=== PATIENT | female | born 1930 | race Caucasian/White ===

== ENCOUNTER 2018-03-09 17:23 | Emergency (ER) | payer MEDICARE ==
[2018-03-09] MEDS ORDERED: 0.9 % SODIUM CHLORIDE 1,000 ML BAG IV ONE (18:10)
[2018-03-09] MEDS ORDERED: ONDANSETRON HCL IV 4 MG/2 ML VIAL IV ONE (18:10)
--- NOTE | 2018-03-09 18:24 | Emergency Department Record ---
History of Present Illness - General Chief complaint: Rectal bleeding Stated complaint: RECTAL BLEEDING Time Seen by Provider: 03/09/18 17:25 Source: Patient Mode of Arrival: Ambulatory Limitations: No limitations - History of Present Illness Initial comments: The patient is here due to rectal bleeding with clots for the last 12 hours. She is having some cramping AP prior to the BM's. The patient does states she had some dry heaves at the onset of the bleeding. She has no hx of similar issues and is only on a baby ASA daily. Her last colonoscopy was > 10 years ago. complaint: Gross hematochezia Onset/Timin -: Hour(s) Severity scale (1-10): 2 Consistency: Intermittent Improves with: Bowel movement Worsens with: None Treatments Prior to Arrival: None - Related Data Home Medications Medication Instructions Recorded Confirmed Last Taken Amlodipine Besylate [Norvasc] 2.5 mg PO DAILY 03/09/18 03/09/18 03/09/18 Aspirin [Adult Low Dose Aspirin EC] 81 mg PO DAILY 03/09/18 03/09/18 03/09/18 Clindamycin HCl 300 mg PO ASDIR 03/09/18 03/09/18 Unknown Losartan Potassium [Cozaar] 100 mg PO DAILY 03/09/18 03/09/18 03/09/18 Metformin HCl [Glucophage] 1,000 mg PO DAILY 03/09/18 03/09/18 03/09/18 Metoprolol Succinate [Toprol Xl] 100 mg PO DAILY 03/09/18 03/09/18 03/09/18 Oxybutynin Chloride [Ditropan] 5 mg PO DAILY 03/09/18 03/09/18 03/09/18 Allergies Allergy/AdvReac Type Severity Reaction Status Date / Time cephalexin [From Keflex] Allergy PT UNSURE Verified 03/09/18 17:49 OF REACTION erythromycin base Allergy SWELLING Verified 03/09/18 17:49 (GENERAL) Penicillins Allergy SWELLING Verified 03/09/18 17:49 (GENERAL) Sulfa (Sulfonamide Allergy SWELLING Verified 03/09/18 17:49 Antibiotics) (GENERAL) acetaminophen [From Vicodin] AdvReac PT UNSURE Verified 03/09/18 17:49 OF REACTION ciprofloxacin [From Cipro] AdvReac PT UNSURE Verified 03/09/18 17:49 OF REACTION hydrocodone [From Vicodin] AdvReac PT UNSURE Verified 03/09/18 17:49 OF REACTION levofloxacin [From Levaquin] AdvReac PT UNSURE Verified 03/09/18 17:49 OF REACTION meperidine [From Demerol] AdvReac PT UNSURE Verified 03/09/18 17:49 OF REACTION [id number]-Nym-Cdl Reductase AdvReac PT UNSURE Verified 03/09/18 17:49 Inhibitor OF REACTION warfarin [From Coumadin] AdvReac HYPERSENSIT Verified 03/09/18 17:49 IVITY Travel Screening - Travel/Exposure Within Last 30 Days Have you traveled within the last 30 days?: No - Travel/Exposure Within Last Year Have you traveled outside the [place] in the last year?: No - Additonal Travel Details Have you been exposed to anyone with a communicable illness?: No - Travel Symptoms Symptom Screening: None Review of Systems Constitutional: Denies: Chills, Fever Eyes: Denies: Eye discharge ENT: Denies: Congestion Respiratory: Denies: Cough, Dyspnea Cardiovascular: Denies: Chest pain Endocrine: Denies: Fatigue Gastrointestinal: Reports: Abdominal pain, Hematochezia, Nausea. Denies: Vomiting Genitourinary: Denies: Dysuria Musculoskeletal: Denies: Arthralgia Past Medical History - SOCIAL HISTORY Smoking Status: Never smoker Alcohol Use: None Drug Use: None - RESPIRATORY Hx Respiratory Disorders: No - CARDIOVASCULAR Hx Cardio Disorders: Yes Hx Cardiac Cath: Yes Hx Hypertension: Yes Hx Vascular Disease: Yes - NEURO Hx Neuro Disorders: No - GI Hx GI Disorders: No - Hx Genitourinary Disorders: No - ENDOCRINE Hx Endocrine Disorders: Yes Hx Diabetes: Yes - MUSCULOSKELETAL Hx Musculoskeletal Disorders: No - PSYCH Hx Psych Problems: No - HEMATOLOGY/ONCOLOGY Hx Hematology/Oncology Disorders: No Family Medical History Any Significant Family History?: Yes Hx Diabetes: Brother/Sister Hx Heart Disease: Father Physical Exam - General General Appearance: Alert, Oriented x3, Cooperative, No acute distress - Head Head exam: Atraumatic, Normocephalic, Normal inspection - Eye Eye exam: Normal appearance, PERRL - ENT Throat exam: Normal inspection. negative: Tonsillar erythema, Tonsillar exudate - Neck Neck exam: Normal inspection, Full ROM. negative: Tenderness - Respiratory Respiratory exam: Normal lung sounds bilaterally. negative: Respiratory distress - Cardiovascular Cardiovascular Exam: Regular rate, Normal rhythm, Normal heart sounds - GI/Abdominal GI/Abdominal exam: Soft, Tenderness (There is mild upper Abdomen tenderness to palpation but with no guarding or rebound.). negative: Guarding, Pulsatile mass , Rebound, Rigid - Extremities Extremities exam: Normal inspection, Full ROM, Normal capillary refill. negative: Tenderness - Neurological Neurological exam: Alert. negative: Motor sensory deficit Course Vital Signs 03/09/18 03/09/18 17:30 18:14 Temperature 98.2 F 98.2 F Pulse Rate 81 81 Respiratory 16 16 Rate Blood Pressure 176/104 Pulse Ox 97 97 - Reevaluation(s) Reevaluation #1: The patient is doing very well at this time. She did have one small stool with blood and small clots present. There is presently no AP, nausea, or vomiting. Due to the fact we have no GI or Surgery doctors. 03/09/18 19:17 Reevaluation #2: I did discuss the case with Dr. Kent at [facility] and she does accept the patient as a direct admission. The patient is doing very well at this time and denies any pain or nausea. I did discuss the need for an Abdominal CT at some point but since she will be transferred it would be prudent to obtain that at [facility] and Dr. Kent agrees. 03/09/18 19:33 03/09/18 20:03 Medical Decision Making - Data Complexity [facility] Data: Labs Ordered and/or Reviewed - Lab Data Result diagrams: 03/09/18 18:30 03/09/18 18:30 Disposition Disposition: Transfer Clinical Impression: Rectal bleed Disposition: Acute Care Hospital Transfer Transfer To: [facility] Reason For Transfer: Rectal bleeding Accepting Physician: Donte Time Discussed w/Accepting Physician: [id number] Condition: (2) Stable Forms: Patient Portal Access Time of Disposition: 19:33 Quality - Quality Measures Quality Measures: N/A - Blood Pressure Screening View Details: Yes Does Patient Have Any of the Following: Active Dx of HTN Blood Pressure Classification: Hypertensive Reading Systolic Measurement: 176 Diastolic Measurement: 104 Screening for High Blood Pressure: Patient Exclusion, Hx of HTN [[id number]]
[2018-03-09 18:41] LABS: BASO % 0.3 % (0-6); EOS % 0.5 % (0-6); HEMATOCRIT 46.1 % (35.0-47.0); HEMOGLOBIN 15.3 gm/dl (11.6-16.0); LYMPH % 12.1 % (16-45); MEAN CELL VOLUME 91.5 fl (81-97); MEAN CORPUSCULAR HEMOGLOBIN 30.4 pg (27-33); MEAN CORPUSCULAR HGB CONC 33.2 g/dl (32-36); MEAN PLATELET VOLUME 9.3 fl (7.4-10.4); MONO % 7.1 % (0-9); PLATELET COUNT 213 K/uL (130-400); RED BLOOD COUNT 5.04 M/uL (3.80-5.40); RED CELL DISTRIBUTION WIDTH 14.6 % (11.5-14.5)
[2018-03-09 18:50] LABS: BLOOD UREA NITROGEN 10 mg/dL (8-23); CREATININE 0.5 mg/dL (0.5-0.9); EST GLOMERULAR FILTRATION RATE > 60 mL/min
[2018-03-09 18:51] LABS: TOTAL PROTEIN 8.1 g/dL (6.6-8.7)
[2018-03-09 18:52] LABS: GLUCOSE,RANDOM 131 mg/dL (74-109)
[2018-03-09 18:53] LABS: INR 1.1; PARTIAL THROMBOPLASTIN TIME 27.6 SECONDS (24.5-39.1); PROTHROMBIN TIME (PATIENT) 11.3 SECONDS (9.5-12.1)
[2018-03-09 18:55] LABS: ALB/GLOB RATIO 1.1 (1.1-1.8); ALBUMIN 4.3 g/dL (4.0-5.0); ALKALINE PHOSPHATASE 90 U/L (35-104); ALT/SGPT 15 U/L (<33); AST/SGOT 23 U/L (10.0-35.0); LIPASE 18 U/L (13-60)
== END 2018-03-09 20:00 | disposition short-term general hospital (02) ==
LOC: ER 17:23
DX: K92.1 Melena (principal); I10 Essential (primary) hypertension; E11.9 Type 2 diabetes mellitus without complications; Z79.84 Long term (current) use of oral hypoglycemic drugs; Z79.01 Long term (current) use of anticoagulants
CPT/HCPCS: 99284 ×2; 96374; 83690; 85025; 85730; 85610; 80053; J2405; J7030